=== PATIENT | female | born 1995 | race Caucasian/White ===

== ENCOUNTER 2021-08-11 14:50 | Emergency (ER) | payer MEDICAID, SELFPAY ==
[2021-08-11 14:54] VITALS: BP 139/91; PULSE 110; RESP 16; TEMP 37; O2SAT 97
[2021-08-11] MEDS: LORazepam 0.5 mg Tablet PO (15:14)
[2021-08-11] MEDS: promethazine 25 mg/mL SDV 1 mL 12.5 MG IM (15:14)
[2021-08-11] MEDS: ketorolac 30 mg/mL INJ IVP (15:14)
--- NOTE | 2021-08-11 15:27 | ED_ITS ---
HPI - Anxiety General: Chief Complaint: Anxiety Stated Complaint: Drs request Time Seen by Provider: 08/11/21 14:52 Source: patient Mode of arrival: ambulatory Limitations: no limitations History of Present Illness: 26-year-old female presents emergency room she had lost a child earlier today. 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 She is struggling with her response to it. At this point she is totally devastated. complaint: anxiety Onset (ago): hour(s) Provoking factors: emotional stress Relieving factors: nothing Exacerbating factors: thinking about event Associated symptoms: Reports malaise; Deny chest pain, chills, fever(s), nausea or vomiting Review of Systems Const: Reports: change in appetite and malaise; Denies: fever(s), chills or body aches Card: Denies: chest pain, edema, dyspnea on exertion or orthopnea Resp: Denies: dyspnea, productive cough or non-productive cough GI: Denies: abdominal pain, nausea or vomiting : Denies: difficulty voiding or dysuria PFS ED PFSH: Medical History (Updated 08/20/21 @ 18:20 by Silvino Hawkins DO) Mandibular hypoplasia No pertinent past medical history Social History (Updated 08/20/21 @ 18:19 by Silvino Hawkins DO) Smoking and tobacco status: never smoked Alcohol intake: never Physical Exam Const: COMMON NORMALS: no acute distress GENERAL APPEARANCE: cooperative ORIENTATION/CONSCIOUSNESS: Yes awake, Yes oriented to person, Yes oriented to place and Yes oriented to time HENMT: COMMON NORMALS: normocephalic, atraumatic and hearing grossly normal bilaterally HEAD & SCALP: normocephalic and atraumatic Neck/C-Spine: COMMON NORMALS: no JVD Resp: COMMON NORMALS: normal respiratory effort, No retractions, No use of accessory muscles and clear to auscultation bilaterally AUSCULTATION: clear to auscultation bilaterally Cardio: COMMON NORMALS: no JVD, regular rate, regular rhythm and No murmurs present (Cardio) RATE: regular rate RHYTHM: regular rhythm Neuro: SENSORIUM/ORIENTATION: Yes oriented to person, Yes oriented to place and Yes oriented to time Course Vital Signs: Vital signs: Vital Signs Temperature 98.6 F 08/11/21 14:54 Pulse Rate 110 H 08/11/21 14:54 Respiratory Rate 16 08/11/21 14:54 Blood Pressure 139/91 08/11/21 14:54 Pulse Oximetry 97 08/11/21 14:54 MDM - Anxiety Medical Decision Making Short-term benzodiazepines given to help patient handled the extreme stress of the loss of a child today. Encouraged her to follow-up with [facility] [place] for long-term care Medical Records I reviewed the patient's medical records. Lab Data I reviewed the patient's lab results. Discharge Plan Discharge Patient Disposition: Home Clinical Impression: Grief reaction Condition: Stable Prescriptions: New alprazolam 0.5 mg tablet 0.5 mg PO Q6H PRN (Reason: anxiety) Qty: 14 0RF Discharge Orders: Discharge ED (Routine); Ordered 08/11/21 Ordered By: Silvino Hawkins Referrals: iSlvino Hawkins, DO [Emergency Provider] - Discharge Diet: Usual diet Discharge Activity: Increase activity as tolerated Patient Instructions: Opioid Safety Coding Level of Care Code ED Interactive Digital Media Specialist for Chano Pimentel
== END 2021-08-11 15:15 | disposition home or self-care (01) ==
PROVIDERS: Emergency Provider Family Medicine
DX: F43.20 Adjustment disorder, unspecified (principal)
CPT/HCPCS: 96372; 99283; J1885; J2550